=== PATIENT | female | born 1980 | race Caucasian/White ===

== ENCOUNTER 2019-07-29 21:26 | Emergency (ER) | payer MEDICAID ==
[~2019-07-29] VITALS: Ht 160 cm; Wt 71.2 kg
[~2019-07-29 21:26] MED LIST: BACO TOP; DUL5 PO; FLA500 PO; HIBICLENS118 ML TOP; NORCO1 TA2 PO; PRI20 PO; TYLENOL EXTRA500 M2 PO
[2019-07-29 21:31] VITALS: Ht 160 cm; Wt 71.2 kg
[2019-07-29 23:01] VITALS: BP 111/69
== END 2019-07-29 23:01 | disposition home or self-care (01) ==
LOC: ED 21:26
DX: J40 Bronchitis, not specified as acute or chronic (principal); H10.9 Unspecified conjunctivitis; Z88.0 Allergy status to penicillin